=== PATIENT | male | born 1935 | race African-American/Black ===

== ENCOUNTER 2018-09-25 06:01 | Inpatient (IN) | payer MEDICARE, BC ==
[~2018-09-25] VITALS: Ht 172.7 cm; Wt 73.5 kg
[~2018-09-25 06:01] MED LIST: ALBU18HF2 IH; ASPI-1393 PO; CALC-1042 PO; CARV3.1242 PO; CHOL100022 PO; FURO20TA4 PO; IBUP-2030 PO; LACTATED RINGERS 1,000 ML IV SCH; LISI-186 PO; MULT-1116 PO; OLME20TA13 PO; RANI-655 PO; TRAM50TA3 PO
[2018-09-25] MEDS ORDERED: BUPIVACAINE/EPINEPH/PF 0.25%/0.0005 10ML ONE (07:02)
[2018-09-25] MEDS ORDERED: METHYLENE BLUE 50 MG/10 ML AMP IV ONE (07:02)
[2018-09-25] MEDS ORDERED: MORPHINE SULFATE/PF 1MG/ML 10ML AMP ONE (07:02)
[2018-09-25] MEDS ORDERED: GENTAMICIN SULF 40MG/ML 2ML VIAL ONE (07:02)
[2018-09-25] MEDS ORDERED: EPINEPHRINE 1:1000 1 MG/ML AMP ONE (07:03)
[2018-09-25] MEDS ORDERED: BACITRACIN 50,000 UNITS/VIAL ONE (07:03)
[2018-09-25] MEDS ORDERED: VANCOMYCIN HCL 500 MG/VIAL ONE (07:03)
[2018-09-25] MEDS ORDERED: NORMAL SALINE 0.9% 10 ML SYR ONE (07:03)
[2018-09-25] MEDS ORDERED: TRANEXAMIC ACID 1,000 MG/10 ML IV ONE (07:15)
[2018-09-25] MEDS ORDERED: CHOL100062 PO (07:18)
[2018-09-25] MEDS ORDERED: OMEG100017 PO (07:18)
[2018-09-25] MEDS ORDERED: DOXA1TAB2 PO (07:18)
[2018-09-25] MEDS ORDERED: ROPIVACAINE HCL 10MG/ML 20 ML VIAL EPI ONE (07:23)
[2018-09-25] MEDS ORDERED: TRANEXAMIC ACID 1,000 MG in SODIUM CHLORIDE 0.9% 100 ML IV NR (07:30)
[2018-09-25] MEDS ORDERED: FENTANYL CITRATE/PF 50MCG/ML 2ML VIAL ONE (07:45)
[2018-09-25] MEDS ORDERED: CEFAZOLIN SODIUM 1000MG/VIAL ONE (07:45)
[2018-09-25] MEDS ORDERED: MIDAZOLAM HCL 2 MG/2 ML VIAL ONE (07:45)
[2018-09-25] MEDS ORDERED: PROPOFOL 200MG/20ML VIAL IV ONE (07:45)
[2018-09-25] MEDS ORDERED: GLYCOPYRROLATE 0.2 MG/ML 2ML VIAL ONE (07:45)
[2018-09-25] MEDS ORDERED: SODIUM CHLORIDE 0.9% 10ML VIAL ONE (07:45)
[2018-09-25] MEDS ORDERED: LIDOCAINE HCL/PF 1% 10 MG/ML 5ML VIAL ONE (07:45)
[2018-09-25] MEDS ORDERED: NEOSTIGMINE METHYLSULFATE 1MG/ML 10 ML VIAL ONE (07:45)
[2018-09-25] MEDS ORDERED: DEXAMETHASONE 4MG/ML 1ML VIAL ONE (07:46)
[2018-09-25] MEDS ORDERED: ONDANSETRON HCL 4MG/2ML INJ ONE (07:46)
[2018-09-25] MEDS ORDERED: EPHEDRINE SULFATE 50MG/ML VIAL ONE (07:46)
[2018-09-25] MEDS ORDERED: METOCLOPRAMIDE HCL 10MG/2ML VIAL ONE (07:46)
[2018-09-25] MEDS ORDERED: SUCCINYLCHOLINE CHLORIDE 200MG/10ML IV ONE (07:46)
[2018-09-25] MEDS ORDERED: PHENYLEPHRINE HCL 10 MG/ML 1ML (IV VIAL) IV ONE (07:46)
[2018-09-25] MEDS ORDERED: VECURONIUM BROMIDE 10 MG/VIAL IV ONE (07:48)
[2018-09-25] MEDS ORDERED: SKIN ADHESIVE 0.7 GM EA TOP ONE ×2 (11:41→12:03)
[2018-09-25] MEDS ORDERED: ONDANSETRON HCL 4MG/2ML INJ IV PRN (12:30)
[2018-09-25] MEDS ORDERED: HYDROCODONE/ACETAMINOPHEN 10/325MG TABLET PO PRN ×2 (12:30)
[2018-09-25] MEDS ORDERED: MAGNESIUM HYDROXIDE 400MG/5ML 30ML UDC PO PRN (12:30)
[2018-09-25] MEDS ORDERED: ACETAMINOPHEN 325MG TABLET PO PRN (12:30)
[2018-09-25] MEDS ORDERED: DIPHENHYDRAMINE INJ IV PRN (14:30)
[2018-09-25] MEDS ORDERED: NALOXONE INJ IV PRN (14:30)
[2018-09-25] MEDS ORDERED: ONDANSETRON INJ IV PRN (14:30)
[2018-09-25] MEDS ORDERED: HYDROMORPHONE PCA 10MG/50ML IV PRN (14:30)
[2018-09-25 15:52] VITALS: BP 100/55
[2018-09-25 16:00] VITALS: BP 98/58
[2018-09-25] MEDS: DOCUSATE SODIUM 100MG CAPSULE PO SCH (17:26)
[2018-09-25 20:00] VITALS: BP 113/65
[2018-09-25] MEDS ORDERED: ZOLPIDEM TARTRATE 5MG TABLET PO PRN (21:00)
[2018-09-25] MEDS: CEFAZOLIN 2,000 MG in DEXT 5% WATER 100 ML IV SCH (21:27)
[2018-09-26] VITALS: BP_SYST 126; BP_SYST 154; BP_DIAS 50; BP_DIAS 61
[2018-09-26 04:00] VITALS: BP 154/60
[2018-09-26 06:04] LABS: CHLORIDE 105 mEq/L (98-107)
[2018-09-26] MEDS: CEFAZOLIN 2,000 MG in DEXT 5% WATER 100 ML IV SCH ×3 (07:26→20:35)
[2018-09-26 08:00] VITALS: BP 118/67
[2018-09-26] MEDS: DOCUSATE SODIUM 100MG CAPSULE PO SCH ×2 (08:23→16:40)
[2018-09-26] MEDS: ASPIRIN 325MG EC TABLET PO SCH (08:23)
[2018-09-26 12:00] VITALS: BP 120/69
[2018-09-26 13:20] LABS: BASOPHILS % 0.1 % (0.0-2.0); HEMATOCRIT. 29.8 % (42.0-52.0); HEMOGLOBIN. 9.8 g/dL (14.0-18.0); LYMPHOCYTES % 7.1 % (20.0-50.0); MEAN CORPUSCULAR HEMOGLOBIN 30.2 pg (28.0-32.0); MEAN CORPUSCULAR VOLUME 92.2 fL (80.0-94.0); MEAN PLATELET VOLUME 7.7 fl (7.4-10.4); MONOCYTES % 12.7 % (2.0-8.0); NEUTROPHILS % 80.1 % (40.0-76.0); PLATELET 168 x1000/uL (130-400); RED BLOOD CELL COUNT 3.23 mill/uL (4.7-6.1); RED CELL DISTRIBUTION WIDTH 14.6 % (11.6-14.6)
[2018-09-26 16:00] VITALS: BP 118/79
[2018-09-26 20:00] VITALS: BP 151/79
[2018-09-27] VITALS: BP 133/69
[2018-09-27 04:00] VITALS: BP 126/76
[2018-09-27 05:15] VITALS: BP 126/78
[2018-09-27 08:00] VITALS: BP 111/67
[2018-09-27] MEDS: DOCUSATE SODIUM 100MG CAPSULE PO SCH (08:41)
[2018-09-27] MEDS: ASPIRIN 325MG EC TABLET PO SCH (08:41)
[2018-09-27 12:00] VITALS: BP 126/76
== END 2018-09-27 12:25 | disposition home or self-care (01) | DRG 483 ==
LOC: OR 06:01 → 6EST 06:02
PROVIDERS: ADMIT Orthopaedic Surgery; ATTEND Orthopaedic Surgery
PROC: 0RRK00Z Replacement of Left Shoulder Joint with Reverse Ball and Socket Synthetic Substitute, Open Approach (ICD-10-PCS; principal; 2018-09-25)
DX: M19.012 Primary osteoarthritis, left shoulder (principal); M75.122 Complete rotator cuff tear or rupture of left shoulder, not specified as traumatic; E78.5 Hyperlipidemia, unspecified; I11.0 Hypertensive heart disease with heart failure; I50.9 Heart failure, unspecified; J45.909 Unspecified asthma, uncomplicated; M19.011 Primary osteoarthritis, right shoulder; M75.121 Complete rotator cuff tear or rupture of right shoulder, not specified as traumatic; Z85.46 Personal history of malignant neoplasm of prostate; Z92.3 Personal history of irradiation; Z98.41 Cataract extraction status, right eye; Z98.42 Cataract extraction status, left eye
CPT/HCPCS: 36415; 73030; 83735; 84100; 84550; 86850; 86900; 88305; 88311; 97166; A4565; C1713; C1776; J0171; J0330; J0690; J1100; J1170; J1580; J2250; J2274; J2370; J2405; J2704; J2710; J2765; J2795; J3010; J3370; J3490; J7050; J7060; Q9968